=== PATIENT | male | born 1945 | race Caucasian/White ===

== ENCOUNTER 2019-01-19 13:52 | Emergency (ER) | payer MEDICARE, OTHER, SELFPAY ==
[2019-01-19 13:55] VITALS: BP 104/54; PULSE 83; RESP 19; TEMP 36.7; O2SAT 98; BMI 25.0
--- NOTE | 2019-01-19 14:20 | DI.RAD.S_ITS ---
PROCEDURE: XR HIP W PEL IF DONE RT 2V INDICATIONS: Severe pain to right hip TECHNIQUE: 2 views of the hip were acquired. COMPARISON: None. FINDINGS: Bones: No fractures or dislocations. No suspicious bony lesions. The visualized pelvic ring appears intact. Mild periarticular osteophyte formation at the bilateral hip joint margins. Soft tissues: No suspicious soft tissue calcifications or masses. IMPRESSION: Mild hip osteoarthritis bilaterally. Dictated by: Sheba Epps M.D. on 01/19/2019 at 14:48 Approved by: Sheba Epps M.D. on 01/19/2019 at 14:49
--- NOTE | 2019-01-19 16:07 | ED.LOWEXIN ---
HPI - Extremity Injury (Lower) <Flaquita Fitzgerald PA-C - Last Filed: 01/19/19 22:58> General Chief Complaint: Extremity Injury, Lower Stated Complaint: 'blown right leg out' Time Seen by Provider: 01/19/19 15:48 Source: patient Mode of arrival: ambulatory Limitations: no limitations History of Present Illness HPI Narrative: This 73-year-old gentleman comes to ED due to 3-4 day history of worsening right hip pain without any trauma. 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 He states that he was recovering well from the surgery, and was doing fine until Tuesday, when he suddenly began to have pain in the right hip with walking. He states he has been walking with a walker but that is quite painful. He denies any falls or trauma though thinks he could possibly be compensating for the left side. He denies any pain in the knee or elsewhere in the leg. He denies any fever. He denies any new rashes. He states that the leg is somewhat swollen but both of them have been a bit since surgery and he does not think this is acutely changed. He is not having any pain in his left leg or hip at this point. He states that he has been taking his postoperative pain medication regularly and has had the pain despite that. He states that he has a little bit of chronic exertional dyspnea that was going on well before surgery. 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 PSH: Cardiac stent TURP SH: former smoker followed by potential surgery) No history of previous cardiac or pulmonary problems Related Data Home Medications Medication Instructions Recorded Confirmed aspirin 81 mg PO DAILY 01/19/19 01/19/19 atorvastatin 20 mg PO BEDTIME 01/19/19 01/19/19 carvedilol 25 mg PO BID 01/19/19 01/19/19 clopidogrel 75 mg PO DAILY 01/19/19 01/19/19 finasteride 5 mg PO DAILY 01/19/19 01/19/19 fluticasone 1 spray INTRANASAL DAILY 01/19/19 01/19/19 gabapentin 300 mg PO TID 01/19/19 01/19/19 losartan 12.5 mg PO DAILY 01/19/19 01/19/19 multivitamin 1 tab PO DAILY 01/19/19 01/19/19 nitroglycerin 0.4 mg SUBLINGUAL PRN PRN 01/19/19 01/19/19 omeprazole 20 mg PO BID 01/19/19 01/19/19 oxycodone 5 - 10 mg PO Q4H PRN 01/19/19 01/19/19 Previous Rx's Medication Instructions Recorded oxycodone 5 mg PO Q4H #14 tab 01/19/19 Allergies Allergy/AdvReac Type Severity Reaction Status Date / Time Penicillins [PENICILLINS] Allergy Intermediate RASH AND Unverified 02/22/18 11:47 FEVER, WAS A CHILD WHEN REACTION HAPPENED lisinopril Allergy Verified 01/19/19 14:00 Review of Systems <Flaquita Fitzgerald PA-C - Last Filed: 01/19/19 22:58> Review of Systems ROS Unobtainable: All systems reviewed & are unremarkable except as noted in HPI and below PFSH <Flaquita Fitzgerald PA-C - Last Filed: 01/19/19 22:58> Social History Smoking Status: Former smoker Social History Smoking Status: Former smoker Exam <Flaquita Fitzgerald PA-C - Last Filed: 01/19/19 22:58> Narrative Exam Narrative: GENERAL APPEARANCE: Patient sitting comfortably, in no distress. LUNGS: Clear to auscultation bilaterally. HEART: Rate and rhythm regular without murmur, normal S1 and S2, no S3 or S4. MUSCULOSKELETAL: Right hip there is generalized tenderness around the joint most anterior laterally. He is tender with passive range of motion of the hip with knee bent, more internal than external rotation. He has positive Epi's test. Able to flex passively with the knee straight without tenderness. No tenderness about the knee joint or with knee flexion. No tenderness over the right ankle EXTREMITIES: No cyanosis, mild pitting edema bilaterally. Minimal right calf tenderness. Pedal pulses are intact DERMATOLOGIC: No exanthem Initial Vital Signs Initial Vital Signs: Vital Signs Temperature 98.1 F 01/19/19 13:55 Pulse Rate 83 01/19/19 13:55 Respiratory Rate 19 01/19/19 13:55 Blood Pressure 104/54 L 01/19/19 13:55 Pulse Oximetry 98 01/19/19 13:55 <Mariana Vadlez DO - Last Filed: 01/20/19 19:22> Initial Vital Signs Initial Vital Signs: Vital Signs Temperature 98.1 F 01/19/19 13:55 Pulse Rate 83 01/19/19 13:55 Respiratory Rate 19 01/19/19 13:55 Blood Pressure 104/54 L 01/19/19 13:55 Pulse Oximetry 98 01/19/19 13:55 Course <Flaquita Fitzgerald PA-C - Last Filed: 01/19/19 22:58> Additional Information: History and findings reviewed with Dr. Valdez given lack of trauma, recent surgery. She agrees possibly due to overuse, reasonable to d/c with increasing his pain medicine a bit (he has been on oxycodone or percocet for a long time for various issues including his tumors). He agrees to see PCP first of next week as he may need further w/u if not doing better. He agrees to return to ED in the interim if acutely worsening. Orders Ordered: Discontinued Medications Oxycodone/Acetaminophen (Percocet 5/325) 2 tab PO NOW ONE Stop: 01/19/19 16:29 Last Admin: 01/19/19 16:39 Dose: 2 tab Vital Signs - 8 hr 01/19/19 17:36 Temperature 98.5 F Pulse Rate 84 Respiratory Rate 16 Blood Pressure [Left Arm] 109/61 Pulse Oximetry 93 <Mariana Valdez DO - Last Filed: 01/20/19 19:22> Orders Ordered: Discontinued Medications Oxycodone/Acetaminophen (Percocet 5/325) 2 tab PO NOW ONE Stop: 01/19/19 16:29 Last Admin: 01/19/19 16:39 Dose: 2 tab Vital Signs - 8 hr 01/19/19 17:36 Temperature 98.5 F Pulse Rate 84 Respiratory Rate 16 Blood Pressure [Left Arm] 109/61 Pulse Oximetry 93 Discharge Plan Departure Patient Disposition: Home Clinical Impression: Acute pain of right hip Discharge Date/Time: 01/19/19 17:42 Interventions: ED Discharge Assessment Last Done: 01/19/19 17:42 Instructions: DI for Hip Pain Activity Restrictions/Additional Instructions: Please return as we talked about if you have acutely worsening symptoms over the weekend. You may be correct as far as possibly overuse/over working your right hip due to the surgery on your left hip. There was no acute finding on her x-ray today nor any evidence of blood clot in her leg. As we talked about you may need further workup such as blood tests an MRI if your pain is not getting better, as there could be other problems such as bone infection causing your pain although that is not very likely based on your history and exam today. Please call your PCP 1st thing on Tuesday and let them know you were seen here and we would like you to be seen on Tuesday for follow-up. In the interim, I have prescribed a little bit of plain oxycodone for you to add to your Percocet (you can take a tablet of this with your regular Percocet dosing to help with her pain since you have not had side effects from it in the past) Prescriptions: New oxycodone 5 mg tablet 5 mg PO Q4H Qty: 14 RF: 0 No Action carvedilol 25 mg tablet 25 mg PO BID RF: 0 atorvastatin 20 mg tablet 20 mg PO BEDTIME RF: 0 clopidogrel 75 mg tablet 75 mg PO DAILY RF: 0 aspirin 81 mg Tablet,Delayed Release (Dr/Ec) 81 mg PO DAILY RF: 0 losartan 25 mg tablet 12.5 mg PO DAILY RF: 0 nitroglycerin 0.4 mg tablet, sublingual 0.4 mg Sublingual PRN PRN (Reason: Chest Pain) RF: 0 gabapentin 300 mg capsule 300 mg PO TID RF: 0 omeprazole 20 mg Capsule,Delayed Release(Dr/Ec) 20 mg PO BID RF: 0 fluticasone 50 mcg/actuation spray,suspension 1 spray Intranasal DAILY RF: 0 finasteride 5 mg tablet 5 mg PO DAILY RF: 0 oxycodone 5 mg tablet 5 - 10 mg PO Q4H PRN (Reason: PAIN) RF: 0 multivitamin Tablet 1 tab PO DAILY RF: 0 Referrals: Anders Camara MD [Primary Care Provider] - <Mariana Valdez DO - Last Filed: 01/20/19 19:22> Cosign ED Attending Coskathyature Attestation: I was immediately available in the department for consultation. This documentation has been reviewed and I agree with assessment and plan. Supervised by Mariana Valdez DO
--- NOTE | 2019-01-19 16:29 | DI.US.S_ITS ---
PROCEDURE: US PERIPH VENOUS LOW EXTREM RT INDICATIONS: pain, swelling, recent surgery TECHNIQUE: Real-time imaging, as well as color and pulse Doppler interrogation, were performed of the lower extremity deep veins from the inguinal ligament to the popliteal fossa. COMPARISON: None. FINDINGS: The deep veins are normally compressible, and free of intraluminal thrombus. Color and pulse Doppler demonstrate normal phasic intraluminal flow. There is normal augmentation response to distal compression maneuver. IMPRESSION: No DVT found. Dictated by: Manuelito Salcido M.D. on 01/19/2019 at 17:06 Approved by: Manuelito Salcido M.D. on 01/19/2019 at 17:06
[2019-01-19] MEDS: OXYCODONE/ACETAMINOPHEN 5/325 TABLET 2 TAB PO (16:39)
--- NOTE | 2019-01-19 17:06 | PC.NURSE ---
rt groin/hip pain began several days ago, worsening, 2 weeks postop lt hip surg, bilat lower ext edema, lt > rt, rt pedal pulses palpable, cap refill <2sec
[2019-01-19 17:36] VITALS: BP 109/61; PULSE 84; RESP 16; TEMP 36.9; O2SAT 93
== END 2019-01-19 17:42 | disposition home or self-care (01) ==
PROVIDERS: Emergency Provider Internal Medicine; Family Provider Internal Medicine; PCP Internal Medicine
DX: M25.551 Pain in right hip (principal)
CPT/HCPCS: 73502; 93971; 99282; 99283

== ENCOUNTER 2019-06-07 19:25 | Emergency (ER) | payer MEDICARE, OTHER, SELFPAY ==
[2019-06-07 19:36] VITALS: BP 139/86; PULSE 72; RESP 18; TEMP 36.3; O2SAT 95
--- NOTE | 2019-06-07 19:48 | ED.SKABFB ---
HPI - Skin/Abscess/Foreign Bdy <EMMANUELLE Amado - Last Filed: 06/07/19 20:03> General Chief complaint: Skin/Abscess/Foreign Body Stated complaint: thinks burn is infected Time Seen by Provider: 06/07/19 19:31 Source: patient Mode of arrival: ambulatory Limitations: no limitations History of Present Illness HPI narrative: The patient is a 73-year-old male current everyday smoker with history of cancer tumor removal from his left groin who presents with a chief complaint of suspecting that his radiation burn is infected. Denies any nausea vomiting diarrhea. He denies any fevers. He states that he noticed that irritation is inguinal area yesterday. He states his and increasingly painful throughout the day. He does note some drainage noted yesterday. Related Data Home Medications Medication Instructions Recorded Confirmed aspirin 81 mg PO DAILY 01/19/19 01/19/19 atorvastatin 20 mg PO BEDTIME 01/19/19 01/19/19 carvedilol 25 mg PO BID 01/19/19 01/19/19 clopidogrel 75 mg PO DAILY 01/19/19 01/19/19 finasteride 5 mg PO DAILY 01/19/19 01/19/19 fluticasone propionate 1 spray INTRANASAL DAILY 01/19/19 01/19/19 gabapentin 300 mg PO TID 01/19/19 01/19/19 losartan 12.5 mg PO DAILY 01/19/19 01/19/19 multivitamin 1 tab PO DAILY 01/19/19 01/19/19 nitroglycerin 0.4 mg SUBLINGUAL PRN PRN 01/19/19 01/19/19 omeprazole 20 mg PO BID 01/19/19 01/19/19 oxycodone 5 - 10 mg PO Q4H PRN 01/19/19 01/19/19 Previous Rx's Medication Instructions Recorded oxycodone 5 mg PO Q4H #14 tab 01/19/19 Allergies Allergy/AdvReac Type Severity Reaction Status Date / Time Penicillins [PENICILLINS] Allergy Intermediate RASH AND Unverified 02/22/18 11:47 FEVER, WAS A CHILD WHEN REACTION HAPPENED lisinopril Allergy Verified 01/19/19 14:00 Review of Systems <EMMANUELLE Amado - Last Filed: 06/07/19 20:03> Review of Systems GENERAL: Denies chills, fatigue, malaise, fever, sweats. HEENT: Denies sinus pain, ear pain, sore throat, difficulty swallowing, dizziness. RESPIRATORY: Denies dyspnea, cough, wheezing, hemoptysis, sputum. CARDIOVASCULAR: Denies chest pain, palpitations, orthopnea, edema, GASTROINTESTINAL: Denies nausea, vomiting, abdominal pain, diarrhea, constipation, melena. : Denies dysuria, frequency, incontinence, hematuria, urinary retention. MUSCULOSKELETAL: denies weakness, joint pain, or bony pain SKIN: See HPI NEUROLOGIC: Denies weakness, headache, numbness, change in speech, confusion, seizures, incoordination. PSYCHIATRIC: No concerning psychosocial issues. 12 point review of systems is negative except for those stated above PFSH <EMMANUELLE Amado - Last Filed: 06/07/19 20:03> Medical History (Updated 06/07/19 @ 20:02 by EMMANUELLE Amado) Hypertension (Acute) Social History Smoking Status: Former smoker Social History Smoking Status: Former smoker Exam <EMMANUELLE Amado - Last Filed: 06/07/19 20:03> Narrative Exam Narrative: GENERAL: Elderly chronically ill-appearing gentleman sitting on chair in no acute distress HEAD: Atraumatic. Normocephalic. No temporal or scalp tenderness. EYES: Pupils equal round and reactive. Extraocular motions intact. No scleral icterus. No injection or drainage. ENT: Nose without bleeding, purulent drainage or septal hematoma. Throat without erythema, tonsillar hypertrophy or exudate. Uvula midline. Airway patent. NECK: Trachea midline. No JVD or lymphadenopathy. Supple, nontender, no meningeal signs. CARDIOVASCULAR: Regular rate and rhythm without murmurs, gallops, or rubs. RESPIRATORY: Coarse breath sounds auscultation. Breath sounds equal bilaterally. No wheezes, rales, or rhonchi. No cough. No increased respiratory effort. No accessory muscle use. GASTROINTESTINAL: Abdomen soft, non-tender, nondistended. No hepato-splenomegaly, or palpable masses. No guarding. EXTREMITIES: No clubbing, cyanosis, or edema. No joint tenderness, effusion, or edema noted. BACK: Nontender without deformity or crepitance. No flank tenderness. NEURO: AOx3. SKIN: 4 x 6 area of peeling skin noted left inguinal area. No drainage. No surrounding erythema. Pain to palpation. Not full thickness. Initial Vital Signs Initial Vital Signs: Vital Signs Temperature 97.4 F L 06/07/19 19:36 Pulse Rate 72 06/07/19 19:36 Respiratory Rate 18 06/07/19 19:36 Blood Pressure 139/86 06/07/19 19:36 Pulse Oximetry 95 06/07/19 19:36 <Markus Stevens DO - Last Filed: 06/08/19 03:52> Initial Vital Signs Initial Vital Signs: Vital Signs Temperature 97.4 F L 06/07/19 19:36 Pulse Rate 72 06/07/19 19:36 Respiratory Rate 18 06/07/19 19:36 Blood Pressure 139/86 06/07/19 19:36 Pulse Oximetry 95 06/07/19 19:36 Course <EMMANUELLE Amado - Last Filed: 06/07/19 20:03> Vital Signs - 8 hr 06/07/19 19:36 Temperature 97.4 F L Pulse Rate 72 Respiratory Rate 18 Blood Pressure 139/86 Pulse Oximetry 95 <Markus Stevens DO - Last Filed: 06/08/19 03:52> Vital Signs - 8 hr 06/07/19 19:36 Temperature 97.4 F L Pulse Rate 72 Respiratory Rate 18 Blood Pressure 139/86 Pulse Oximetry 95 MDM - Skin/Abscess/Foreign Bdy <EMMANUELLE Amado - Last Filed: 06/07/19 20:03> Lab Data Urine Dip Bedside Urine Glucose Negative Bedside Urine Bilirubin - Negative Bedside Urine Ketone - Negative Urine Specific [place] 1.015 Bedside Urine Occult Blood - Negative Bedside Urine pH 6.0 Bedside Urine Protein - Negative Bedside Urine Urobilinogen - Negative Bedside Urine Nitrite - Negative Bedside Urine Leukocytes - Negative Esterase MDM Narrative Medical decision making narrative: The patient is a 73-year-old male who presents with chief complaint of the radiation burn. His exam reveals likely radiation dermatitis. I discussed at length using steroids, bacitracin, as well as the importance of follow-up with his radiation provider, which she plans on doing tomorrow. Discussed at length monitoring for signs of systemic infection including fever, vomiting, diarrhea cetera. Patient states understanding and has no questions or concerns. States understanding of follow-up care as well as return precautions. <Markus Stevens DO - Last Filed: 06/08/19 03:52> Lab Data Urine Dip Bedside Urine Glucose Negative Bedside Urine Bilirubin - Negative Bedside Urine Ketone - Negative Urine Specific [place] 1.015 Bedside Urine Occult Blood - Negative Bedside Urine pH 6.0 Bedside Urine Protein - Negative Bedside Urine Urobilinogen - Negative Bedside Urine Nitrite - Negative Bedside Urine Leukocytes - Negative Esterase Discharge Plan Departure Patient Disposition: Home Clinical Impression: Acute radiation dermatitis Discharge Date/Time: 06/07/19 20:07 Interventions: ED Discharge Assessment Last Done: 06/07/19 20:06 Instructions: Coping With Radiation Recall Dermatitis Activity Restrictions/Additional Instructions: Please monitor for signs of systemic infection such as fever, vomiting and diarrhea. Please follow-up with your primary care provider or her hematology, oncology provider soon as possible. In the meantime I suggest NSAIDs, such as ibuprofen if able, as well as topical steroids such as hydrocortisone and bacitracin. Please come back to emergency department for any acute concerns such as high fever and inability keep down fluids Prescriptions: No Action carvedilol 25 mg tablet 25 mg PO BID RF: 0 atorvastatin 20 mg tablet 20 mg PO BEDTIME RF: 0 clopidogrel 75 mg tablet 75 mg PO DAILY RF: 0 aspirin 81 mg Tablet,Delayed Release (Dr/Ec) 81 mg PO DAILY RF: 0 losartan 25 mg tablet 12.5 mg PO DAILY RF: 0 nitroglycerin 0.4 mg tablet, sublingual 0.4 mg Sublingual PRN PRN (Reason: Chest Pain) RF: 0 gabapentin 300 mg capsule 300 mg PO TID RF: 0 omeprazole 20 mg Capsule,Delayed Release(Dr/Ec) 20 mg PO BID RF: 0 fluticasone propionate 50 mcg/actuation spray,suspension 1 spray Intranasal DAILY RF: 0 finasteride 5 mg tablet 5 mg PO DAILY RF: 0 oxycodone 5 mg tablet 5 - 10 mg PO Q4H PRN (Reason: PAIN) RF: 0 multivitamin Tablet 1 tab PO DAILY RF: 0 oxycodone 5 mg tablet 5 mg PO Q4H Qty: 14 RF: 0 Referrals: Anders Camara MD [Primary Care Provider] - <Markus Stevens DO - Last Filed: 06/08/19 03:52> Cosign ED Attending Oluature Attestation: I was immediately available in the department for consultation. Documentation has been reviewed. I agree with assessment and plan.
== END 2019-06-07 20:07 | disposition home or self-care (01) ==
PROVIDERS: Emergency Provider Nurse Practitioner Family; Family Provider Internal Medicine; PCP Internal Medicine
DX: L58.0 Acute radiodermatitis (principal)
CPT/HCPCS: 81003; 99282

== ENCOUNTER → 2019-07-27 14:12 | Outpatient (CLI) | payer MEDICARE, OTHER, SELFPAY ==
--- NOTE | 2019-07-27 | DI.RAD.S_ITS ---
PROCEDURE: XR KNEE RT 1TO2V INDICATIONS: RT KNEE PAIN TECHNIQUE: 2 views of the knee were acquired. COMPARISON: None. FINDINGS: Bones: No fractures or dislocations. Mild degenerative change. No suspicious bony lesions. Soft tissues: A joint effusion is present. No suspicious soft tissue calcifications. Vascular calcifications. IMPRESSION: No fracture or dislocation. Joint effusion is present. Dictated by: Indra Khan M.D. on 07/27/2019 at 15:41 Approved by: Indra Khan M.D. on 07/27/2019 at 15:42
== END ==
PROVIDERS: Family Provider Internal Medicine; PCP Internal Medicine; Visit Provider Physician Assistant Medical
DX: M25.561 Pain in right knee (principal); M25.461 Effusion, right knee
CPT/HCPCS: 73560

== ENCOUNTER → 2020-04-22 12:53 | Outpatient (CLI) | payer MEDICARE, OTHER, SELFPAY ==
--- NOTE | 2020-04-22 | DI.MRI.S_ITS ---
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 After the administration of contrast, axial/sagittal/coronal T1 spin echo with fat saturation through the pelvis. COMPARISON: [facility], MR, MR PELVIS WITH/WITHOUT CONTRAST, 04/16/2019, 10:13. [facility], MR, PELVIS W&WO CONTRAST, 04/21/2015, 7:30. FINDINGS: Image quality: Excellent. Bones: Again noted is prior resection of patient's known medial left upper thigh/inguinal/anterior pelvic soft tissue mass with erosive changes/destruction involving anterior and medial left acetabulum extending to involve left superior and inferior pubic rami not significantly changed in appearance from previous study. Mild marrow edema involving medial portion of right inferior pubic ramus near symphysis pubis is also seen. No definite abnormal intraosseous enhancement is noted. No new area of abnormal marrow signal. No acute fracture or dislocation. Osteoarthritic changes are noted throughout bony pelvis. No evidence of avascular necrosis of femoral head. Soft tissues: T2 hyperintense signal involving left iliopsoas muscle, pectineus muscle, at adductor muscles and obturator externus muscle and significant left pelvic floor muscle atrophy compared to right side. No discrete soft tissue mass is seen. Nonspecific mild contrast enhancement at the surgical bed is seen. No other area of abnormal enhancement. IMPRESSION: 1. Extensive post surgical changes in left anterior pelvis, left inguinal region and anterior medial left upper thigh as above, not significant changed from prior study. Nonspecific enhancement is noted at the surgical bed, no definite recurrence or discrete enhancing soft tissue mass is identified. 2. Erosive changes involving left acetabulum as well as left superior and inferior pubic rami and nonspecific marrow edema involving medial portion of right inferior pubic ramus not significant changed from prior study and most likely represent post surgical changes. No definite new destructive osseous lesion is seen. 3. Atrophy of left pelvic floor muscles compared to the right side, not significantly changed from prior study. 4. No peritoneal free fluid is seen. No gross inguinal lymphadenopathy. Dictated by: Fredrick Ochoa M.D. on 04/22/2020 at 17:37 Approved by: Fredrick Ochoa M.D. on 04/22/2020 at 17:51
--- NOTE | 2020-04-22 | DI.MRI.S_ITS ---
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 After the administration of contrast, axial/sagittal/coronal T1 spin echo with fat saturation through the left thigh. COMPARISON: None. FINDINGS: Image quality: Excellent. Bones: Postsurgical changes and chronic erosive changes are noted involving the left anterior and medial acetabulum as well as visualized portion of left superior and inferior pubic rami. Left hip joint osteophytic changes are seen. No marrow signal abnormality is noted in left femur. No suspicious intraosseous lesion or abnormal enhancement. Soft tissues: Post surgical changes are noted involving the left pelvic floor muscles and anterior medial left upper thigh muscles with edema and asymmetric muscle atrophy. No definite discrete intramuscular or soft tissue mass is seen. No discrete drainable fluid collection. Nonspecific contrast enhancement within surgical bed is seen. No other area of abnormal enhancement. Rest of left thigh muscles and tendons are intact. IMPRESSION: 1. Stable post surgical changes involving left anterior medial upper thigh and left pelvic floor with nonspecific contrast enhancement at the surgical bed most likely represent postsurgical scarring. No definite discrete soft tissue mass or fluid collection is identified. 2. No evidence of recurrent or metastatic disease is seen in left femur. Stable deformity of left acetabulum and left pubic rami. Dictated by: Fredrick Ochoa M.D. on 04/22/2020 at 17:51 Approved by: Fredrick Ochoa M.D. on 04/22/2020 at 17:55
--- NOTE | 2020-04-22 | DI.RAD.S_ITS ---
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 COMPARISON: [facility], CR, XR HIP W PEL IF DONE RT 2V, 01/19/2019, 14:27. FINDINGS: Bones: No fractures or dislocations. Pelvic ring appears intact. No suspicious bony lesions. Lumbar spondylosis and facet arthropathy. Mild-moderate bilateral hip joint degeneration Soft tissues: The visualized bowel gas pattern is normal. No suspicious soft tissue calcifications. Scattered vascular calcifications. Surgical clips. IMPRESSION: Mild-moderate bilateral hip joint degeneration, grossly unchanged. Dictated by: Eugenio Mcnulty M.D. on 04/22/2020 at 15:59 Approved by: Eugenio Mcnulty M.D. on 04/22/2020 at 16:01
--- NOTE | 2020-04-22 | DI.RAD.S_ITS ---
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 COMPARISON: [facility], CT, PE STUDY (CTA CHEST), 07/05/2015, 12:45. [facility], CR, CHEST 2 VIEW, 07/05/2015, 11:21. FINDINGS: Surgical changes and devices: None. Lungs and pleura: Lungs are clear. No pleural effusions or pneumothorax. Mediastinum: Mediastinal contours are normal. Heart size is normal. Redemonstrated hiatal hernia Bones and chest wall: No suspicious bony abnormalities. Chronic right clavicle fracture. Soft tissues appear unremarkable. IMPRESSION: Hiatal hernia as before No acute disease Dictated by: Eugenio Mcnulty M.D. on 04/22/2020 at 15:57 Approved by: Eugenio Mcnulty M.D. on 04/22/2020 at 15:58
== END ==
PROVIDERS: Family Provider Internal Medicine; PCP Internal Medicine; Visit Provider Orthopaedic Surgery
DX: C49.5 Malignant neoplasm of connective and soft tissue of pelvis (principal); M16.0 Bilateral primary osteoarthritis of hip; M47.816 Spondylosis without myelopathy or radiculopathy, lumbar region; K44.9 Diaphragmatic hernia without obstruction or gangrene
CPT/HCPCS: 71046; 72197; 73521; 73720

== ENCOUNTER → 2021-05-14 13:33 | Outpatient (CLI) | payer MEDICARE, OTHER, SELFPAY ==
--- NOTE | 2021-05-14 | DI.MRI.S_ITS ---
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 TECHNIQUE: Coronal HASTE, sagittal T2 FSE, axial T1 FSE, axial and coronal nonbreath-hold T2 FSE. Axial dynamic VIBE during administration of contrast. Post-contrast axial, sagittal and coronal VIBE/2-D FLASH with fat saturation from the iliac crests to the symphysis. Diffusion weighted imaging and ADC or also performed. COMPARISON: [facility], MR, MR PELVIS WITH/WITHOUT CONTRAST, 11/24/2018, 8:50. [facility], MR, MR PELVIS WITH/WITHOUT CONTRAST, 04/16/2019, 10:13. [facility], MR, MR FEMUR LT WO/W CON, 04/22/2020, 13:46. [facility], MR, MR PELVIS WO/W CON, 04/22/2020, 13:25. FINDINGS: Image quality: Evaluation is limited by motion artifact and absence of fat saturation on post-contrast axial images. Bowel and peritoneum: No pathologic free pelvic fluid. Visualized colon and small bowel loops are normal in caliber. There is colonic diverticulosis without acute diverticulitis. No intraperitoneal free fluid. Genitourinary system: Bladder wall is normal in thickness given incomplete distention. There is mild enlargement of the prostate. Distal ureters are non distended. Nodes and vessels: No pathologic pelvic or inguinal adenopathy by size criteria. Iliac vessels are normal in caliber. Soft tissues: Extensive postsurgical changes are redemonstrated in the left hemipelvis and proximal left thigh consistent with prior mass resection. There is residual enhancing soft tissue along the left pelvic sidewall with associated erosive changes extending into the medial left acetabulum anteriorly as well as the left superior pubic ramus. The overall extent of enhancing soft tissues is similar in size to the prior study and also similar to the 04/16/2019 study given differences in technique. There is also edema and volume loss within the left adductor compartment consistent with denervation changes. No definite new enhancing mass in the surgical bed. Bones: Marrow is normal in overall signal. As noted above, there are erosive changes within the left superior pubic ramus extending to the pubis medially and involving the medial wall of the left acetabulum with associated enhancement. There is decreased edema within the right superior pubic ramus and pubic bone compared to the 2019 study consistent with posttreatment changes. No definite new suspicious intraosseous mass lesion. IMPRESSION: 1. Extensive postsurgical changes redemonstrated within the left hemipelvis and proximal left thigh. 2. Lobulated enhancing soft tissue along the left pelvic sidewall with associated enhancing erosive changes in the adjacent left superior pubic ramus and medial left acetabulum are suspicious for residual disease. However, this appears similar in size and extent compared to the prior studies. The differential includes postsurgical scarring. Recommend continued attention on follow-up. Dictated by: Dennis Cameron M.D. on 05/14/2021 at 17:05 Approved by: Dennis Cameron M.D. on 05/14/2021 at 17:23
--- NOTE | 2021-05-14 | DI.RAD.S_ITS ---
PROCEDURE: XR HIP W PEL IF DONE LT 2V INDICATIONS: Benign neoplasm of connective and other soft tissu TECHNIQUE: AP pelvis with lateral view(s) of the left hip(s). COMPARISON: [facility], MR, MR FEMUR LT WO/W CON, 04/22/2020, 13:46. [facility], CR, XR HIP W PEL IF DONE BILAT 2V, 04/22/2020, 14:35. [facility], CR, XR HIP W PEL IF DONE RT 2V, 01/19/2019, 14:27. FINDINGS: Bones: No fractures or dislocations. Pelvic ring appears intact. No suspicious bony lesions. Soft tissues: The visualized bowel gas pattern is normal. No suspicious soft tissue calcifications. Scattered surgical clips at and adjacent to the left hip area. IMPRESSION: Postsurgical changes but no evidence for osseous involvement by neoplasm. Please also refer to contrast-enhanced MR scanning of the pelvis and hip area, both from the past and to be performed today. Dictated by: Manuelito Salcido M.D. on 05/14/2021 at 15:04 Approved by: Manuelito Salcido M.D. on 05/14/2021 at 15:06
--- NOTE | 2021-05-14 | DI.MRI.S_ITS ---
PROCEDURE: MR FEMUR LT WO/W CON INDICATIONS: Benign neoplasm of connective and other soft tissu TECHNIQUE: Noncontrast coronal T1 spin echo and STIR, sagittal T1 spin echo with fat saturation and STIR, axial T1 spin echo and T2 fast spin echo with fat saturation. After the administration of contrast, axial/sagittal/coronal T1 spin echo with fat saturation through the left femur. COMPARISON: [facility], MR, MR PELVIS WITH/WITHOUT CONTRAST, 04/16/2019, 10:13. [facility], MR, MR FEMUR LT WO/W CON, 04/22/2020, 13:46. FINDINGS: Image quality: Motion degraded examination. Bones: Marrow signal changes present within the anterior column of the right acetabulum are again noted with adjacent abnormal soft tissue signal although grossly unchanged. This may reflect postoperative scarring and granulation tissue given the long-term stability and no interval change since 04/22/20. Remainder of the marrow signal intensity within normal limits. There is diffuse atrophy of the right hip abductor compartment musculature as before. Normal appearance of the vessels. No pathologically enlarged lymphadenopathy identified. Subcutaneous soft tissues grossly unremarkable except for residual scarring in the medial left upper thigh. The intrapelvic contents are grossly unremarkable where visualized plate areas IMPRESSION: Erosive findings involving the anterior column of the right acetabulum with adjacent soft tissue signal change. Overall, no interval progression since 04/22/20 and compared to more remote prior studies. This suggests the possibility of treated disease and possible enhancing granulation tissue. Overall, no interval change to suggest active tumor. Diffuse muscle atrophy as before. No lymphadenopathy seen. Dictated by: Eugenio Mcnulty M.D. on 05/14/2021 at 16:51 Approved by: Eugenio Mcnulty M.D. on 05/14/2021 at 17:01
== END ==
PROVIDERS: Family Provider Internal Medicine; PCP Internal Medicine; Referring Provider Physician Assistant Medical; Visit Provider Physician Assistant Medical
DX: D21.22 Benign neoplasm of connective and other soft tissue of left lower limb, including hip (principal); M12.20 Villonodular synovitis (pigmented), unspecified site; M62.58 Muscle wasting and atrophy, not elsewhere classified, other site
CPT/HCPCS: 72197; 73502; 73720; A9579

== ENCOUNTER → 2022-03-08 10:18 | Outpatient (CLI) | payer MEDICARE, OTHER, SELFPAY ==
--- NOTE | 2022-03-08 | DI.RAD.S_ITS ---
PROCEDURE: XR CHEST 2V INDICATIONS: worsening shortness of breath, cough TECHNIQUE: 2 views of the chest were acquired. COMPARISON: [facility], CR, XR CHEST 2V, 04/22/2020, 14:35. FINDINGS: Surgical changes and devices: None. Lungs and pleura: Mildly increased bronchovascular markings in bilateral hilar region are seen with mild bronchial wall thickening. No definite focal infiltrate. No pleural effusions or pneumothorax. Mediastinum: Mediastinal contours are normal. Heart size is normal. Bones and chest wall: No suspicious bony abnormalities. Soft tissues appear unremarkable. IMPRESSION: Finding is suggestive of mild reactive airway disease such as bronchitis or asthma. No focal infiltrate, pleural effusion or pneumothorax. Dictated by: Fredrick Ochoa M.D. on 03/08/2022 at 13:51 Approved by: Fredrick Ochoa M.D. on 03/08/2022 at 13:58
== END ==
PROVIDERS: Family Provider Internal Medicine; PCP Internal Medicine; Referring Provider Physician Assistant; Visit Provider Physician Assistant
DX: R05.9 Cough, unspecified; R06.02 Shortness of breath
CPT/HCPCS: 71046

== ENCOUNTER 2022-04-17 14:50 | Emergency (ER) | payer MEDICARE, OTHER, SELFPAY ==
[2022-04-17 14:55] VITALS: BP 153/70; PULSE 81; RESP 18; TEMP 37.4; O2SAT 89; BMI 27.7
--- NOTE | 2022-04-17 15:03 | DI.RAD.S_ITS ---
PROCEDURE: XR CHEST 2V INDICATIONS: shortness of breath TECHNIQUE: 2 views of the chest were acquired. COMPARISON: [facility], , XR CHEST 2V, 04/22/2020, 14:35. [facility], , XR CHEST 2V, 03/08/2022, 10:39. FINDINGS: Surgical changes and devices: None. Lungs and pleura: Lungs are clear. No pleural effusions or pneumothorax. Mediastinum: Hiatal hernia less prominent on today's examination. Mediastinal contours are normal. Heart size is normal. Bones and chest wall: No suspicious bony abnormalities. Soft tissues appear unremarkable. IMPRESSION: No evidence of an acute cardiopulmonary abnormality. Hiatal hernia. Dictated by: Isrrael Ponce D.O. on 04/17/2022 at 14:45 Approved by: Isrrael Ponce D.O. on 04/17/2022 at 14:46
[2022-04-17 15:23] VITALS: O2SAT 96
[2022-04-17] MEDS: ALBUTEROL/IPRATROPIUM 3 ML AMPUL INH (15:34)
[2022-04-17 15:57] LABS: Add Manual Diff / Slide Review NO; Basophils Absolute Auto 100 /uL (0-100); Basophils Percent Auto 0.8 % (0-2); Eosinophils Absolute Auto 100 /uL (0-450); Eosinophils Percent Auto 0.6 % (2-4); Hematocrit 39.9 % (41-53); Lymphocytes Absolute Auto 800 /uL (1100-4500); Lymphocytes Percent Auto 9.5 % (25-40); Mean Corpuscular HGB Conc 35.1 % (30-36); Mean Corpuscular Hemoglobin 32.8 PG (26-34); Mean Corpuscular Volume 93.4 fL (80-100); Monocytes Absolute Auto 1100 /uL (0-900); Neutrophils Absolute Auto 6400 /uL (1500-7000); Neutrophils Percent Auto 76.1 % (50-75); Platelet Count 294 X10^3/uL (150-400); Red Blood Cell Count 4.27 X10^6/uL (4.5-5.9); Red Cell Distribution Width 13.8 % (11.6-14.8); White Blood Cell Count 8.4 X10^3/uL (4.5-11.0)
[2022-04-17 16:01] LABS: Alanine Aminotransferase 30 IU/L (<50); Albumin 4.5 g/dL (3.5-5.0); Albumin Globulin Ratio 1.4 (1.0-2.8); Alkaline Phosphatase 124 U/L (38-126); Aspartate Aminotransferase 35 IU/L (17-59); BUN Creatinine Ratio 14.7 (6-22); Bilirubin Total 0.4 mg/dL (0.2-1.3); Blood Urea Nitrogen 10 mg/dL (9-20); Carbon Dioxide 27 mmol/L (22-32); Chloride 101 mmol/L (98-107); Estimated Glomerular Filt Rate > 60 mL/min (>60); Globulin 3.3 g/dL (1.7-4.1); Glucose 108 mg/dL (80-110); HEMOLYSIS < 15 (0-50); Lactate (Lactic Acid) 1.1 mmol/L (0.7-2.1); Potassium 4.5 mmol/L (3.4-5.1); Sodium 136 mmol/L (137-145); Total Protein 7.8 g/dL (6.3-8.2)
[2022-04-17 16:04] LABS: Adenovirus Not Detected (Not Detect); B. parapertussis Not Detected (Not Detecte); Bordetella pertussis Not Detected (Not Detecte); Chlamydophila pneumoniae Not Detected (Not Detect); Coronavirus 229E Not Detected (Not Detect); Coronavirus HKU1 Not Detected (Not Detect); Coronavirus NL 63 Not Detected (Not Detect); Coronavirus OC43 Not Detected (Not Detect); Human Metapneumovirus Detected (Not Detect); Human Rhinovirus/Enterovirus Not Detected (Not Detect); Influenza A Not Detected (Not Detect); Influenza B Not Detected (Not Detect); Mycoplasma pneumoniae Not Detected (Not Detect); Parainfluenza Virus 1 Not Detected (Not Detect); Parainfluenza Virus 2 Not Detected (Not Detect); Parainfluenza Virus 3 Not Detected (Not Detect); Parainfluenza Virus 4 Not Detected (Not Detect); Respiratory Syncytial Virus Not Detected (Not Detect); SARS- CoV-2 Not Detected (Not Detecte)
[2022-04-17 16:21] VITALS: PULSE 82; RESP 20; O2SAT 94
--- NOTE | 2022-04-17 16:21 | PC.NURSE ---
Pt appears much better after breathing tx. States he is breathing much easier
--- NOTE | 2022-04-17 16:58 | ED.SOB ---
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 Patient denies ever having a COPD exacerbation, states that his 6 year old daughter came with a fever and upper respiratory infection three days ago. Patient is unvaccinated for COVID, denies having a fever, chest pain, nausea vomiting or diarrhea. He endorses shortness of breath and chest tightness, he use his inhalers at home, states that he is on albuterol and breztri inhalers for his COPD and just started the Breztri this week, it is a Laba and Lama with a corticosteroid. Related Data Home Medications Medication Instructions Recorded Confirmed aspirin 81 mg tablet,delayed 81 mg PO DAILY 01/19/19 01/19/19 release atorvastatin 20 mg tablet 20 mg PO BEDTIME 01/19/19 01/19/19 carvedilol 25 mg tablet 25 mg PO BID 01/19/19 01/19/19 clopidogrel 75 mg tablet 75 mg PO DAILY 01/19/19 01/19/19 finasteride 5 mg tablet 5 mg PO DAILY 01/19/19 01/19/19 fluticasone propionate 50 1 spray INTRANASAL DAILY 01/19/19 01/19/19 mcg/actuation nasal spray,suspension gabapentin 300 mg capsule 300 mg PO TID 01/19/19 01/19/19 losartan 25 mg tablet 12.5 mg PO DAILY 01/19/19 01/19/19 multivitamin 1 tab PO DAILY 01/19/19 01/19/19 nitroglycerin 0.4 mg sublingual 0.4 mg SUBLINGUAL PRN PRN 01/19/19 01/19/19 tablet omeprazole 20 mg capsule,delayed 20 mg PO BID 01/19/19 01/19/19 release oxycodone 5 mg tablet 5 - 10 mg PO Q4H PRN 01/19/19 01/19/19 Previous Rx's Medication Instructions Recorded oxycodone 5 mg tablet 5 mg PO Q4H #14 tab 01/19/19 Allergies Allergy/AdvReac Type Severity Reaction Status Date / Time Penicillins [PENICILLINS] Allergy Intermediate RASH AND Unverified 02/22/18 11:47 FEVER, WAS A CHILD WHEN REACTION HAPPENED lisinopril Allergy Verified 01/19/19 14:00 Review of Systems <IVÁN Maurer - Last Filed: 04/17/22 17:09> Review of Systems Narrative: General: denies fever, chills Head/Neck: denies headache, neck pain Eyes: denies visual changes, eye pain Cardio: denies chest pain, palpitations Respiratory: Endorses shortness of breath with a productive cough, runny nose, sore throat GI: denies abdominal pain, nausea, vomiting, or diarrhea : denies dysuria, hematuria or flank pain MSK: denies new joint pain, muscle weakness or swelling Skin: denies rash, itching or wound Neuro: denies numbness, tingling, dizziness Patient History <IVÁN Maurer - Last Filed: 04/17/22 17:09> Medical History Hypertension Social History Smoking Status: Former smoker Smoking Status: Former smoker alcohol intake frequency: a few times a week Substance Use Type: does not use Exam <IVÁN Maurer Last Filed: 04/17/22 17:09> Narrative Exam Narrative: Independently reviewed vitals signs and nursing notes. General: Awake, alert, nontoxic, no cardiorespiratory distress Head/Neck: Atraumatic, neck supple Eyes: EOMI, conjunctiva normal Nose: nares patent, no rhinorrhea Mouth/Throat: moist mucus membranes, posterior pharynx without erythema or lesion Cardio: Regular rate and rhythm, no peripheral edema Respiratory: respirations unlabored with extra Lorena wheezes throughout all burgos, without stridor rales, hypoxia prior to DuoNeb with O2 sats of 89% on room air, after DuoNeb, patient satting in mid 90s, with better aeration and air flow, mild squeak heard intermittently on exhalation. Patient is without crackles or rales, retractions or tachypnea GI: Abdomen soft, nontender to palpation x4 quadrants, no guarding or rebound tenderness MSK: Moves all extremities, neurovascularly intact, range of motion without deficit Skin: Normal capillary refill, no rash Neuro: Normal speech and cognition, normal gait Initial Vital Signs Initial Vital Signs: Vital Signs Temperature 99.4 F 04/17/22 14:55 Pulse Rate 81 04/17/22 14:55 Respiratory Rate 18 04/17/22 14:55 Blood Pressure 153/70 H 04/17/22 14:55 Pulse Oximetry 89 L 04/17/22 14:55 <David Miguel DO - Last Filed: 04/17/22 17:57> Initial Vital Signs Initial Vital Signs: Vital Signs Temperature 99.4 F 04/17/22 14:55 Pulse Rate 81 04/17/22 14:55 Respiratory Rate 18 04/17/22 14:55 Blood Pressure 153/70 H 04/17/22 14:55 Pulse Oximetry 89 L 04/17/22 14:55 Course <VERONICA MaurerP - Last Filed: 04/17/22 17:09> Orders Ordered: ED Orders 04/17/22 15:03 XR chest 2V Stat EKG-12 Lead Stat Measure peak expiratory flow ONCE RT Consult Eval and Treat Now 04/17/22 15:30 Complete Blood Count AUTO DIFF Stat Comprehensive Metabolic Panel Stat Lactate (Lactic Acid) Stat 04/17/22 16:03 Respiratory Panel (Film Array) Stat Discontinued Medications Albuterol/Ipratropium (Albuterol/Ipratropium 3 Ml Ampul) 3 ml INH NOW ONE Stop: 04/17/22 15:23 Last Admin: 04/17/22 15:34 Dose: 3 ml Documented by: PATO Vital Signs Vital signs: Vital Signs - 8 hr 04/17/22 14:55 04/17/22 15:23 04/17/22 16:21 Temperature 99.4 F Pulse Rate 81 82 Respiratory Rate 18 20 Blood Pressure 153/70 H Pulse Oximetry 89 L 96 94 04/17/22 17:11 Temperature Pulse Rate 81 Respiratory Rate 22 Blood Pressure Pulse Oximetry 93 <David Miguel DO - Last Filed: 04/17/22 17:57> Orders Ordered: ED Orders 04/17/22 15:03 XR chest 2V Stat EKG-12 Lead Stat Measure peak expiratory flow ONCE RT Consult Eval and Treat Now 04/17/22 15:30 Complete Blood Count AUTO DIFF Stat Comprehensive Metabolic Panel Stat Lactate (Lactic Acid) Stat 04/17/22 16:03 Respiratory Panel (Film Array) Stat Discontinued Medications Albuterol/Ipratropium (Albuterol/Ipratropium 3 Ml Ampul) 3 ml INH NOW ONE Stop: 04/17/22 15:23 Last Admin: 04/17/22 15:34 Dose: 3 ml Documented by: PATO Vital Signs Vital signs: Vital Signs - 8 hr 04/17/22 14:55 04/17/22 15:23 04/17/22 16:21 Temperature 99.4 F Pulse Rate 81 82 Respiratory Rate 18 20 Blood Pressure 153/70 H Pulse Oximetry 89 L 96 94 04/17/22 17:11 Temperature Pulse Rate 81 Respiratory Rate 22 Blood Pressure Pulse Oximetry 93 MDM - SOB/Dyspnea <IVÁN Maurer - Last Filed: 04/17/22 17:09> Lab Data Result diagrams: 04/17/22 15:30 04/17/22 15:30 Labs: Lab Results 04/17/22 04/17/22 04/17/22 Range/Units 15:30 15:30 15:30 WBC 8.4 (4.5-11.0) X10^3/uL RBC 4.27 L (4.5-5.9) X10^6/uL Hgb 14.0 (13.5-17.5) g/dL Hct 39.9 L (41-53) % MCV 93.4 (80-100) fL MCH 32.8 (26-34) PG MCHC 35.1 (30-36) % RDW 13.8 (11.6-14.8) % Plt Count 294 (150-400) X10^3/uL Neut % (Auto) 76.1 H (50-75) % Lymph % (Auto) 9.5 L (25-40) % [place] % (Auto) 13.0 (3-14) % Eos % (Auto) 0.6 L (2-4) % Baso % (Auto) 0.8 (0-2) % Neut # (Auto) 6400 (8731-9992) /uL Lymph # (Auto) 800 L (6950-1957) /uL [place] # (Auto) 1100 H (0-900) /uL Eos # (Auto) 100 (0-450) /uL Baso # (Auto) 100 (0-100) /uL Sodium 136 L (137-145) mmol/L Potassium 4.5 (3.4-5.1) mmol/L Chloride 101 (98-107) mmol/L Carbon Dioxide 27 (22-32) mmol/L BUN 10 (9-20) mg/dL Creatinine 0.68 (0.66-1.25) mg/dL Estimated GFR > 60 (>60) mL/min BUN/Creatinine Ratio 14.7 (6-22) Glucose 108 (80-110) mg/dL Lactate 1.1 (0.7-2.1) mmol/L Calcium 9.0 (8.4-10.2) mg/dL Total Bilirubin 0.4 (0.2-1.3) mg/dL AST 35 (17-59) IU/L ALT 30 (<50) IU/L Alkaline Phosphatase 124 (38-126) U/L Total Protein 7.8 (6.3-8.2) g/dL Albumin 4.5 (3.5-5.0) g/dL Globulin 3.3 (1.7-4.1) g/dL Albumin/Globulin Ratio 1.4 (1.0-2.8) Chlamy pneumoniae PCR (Not Detect) Adenovirus (PCR) (Not Detect) B. pertussis DNA (PCR) (Not Detecte) B.parapertussis DNA PCR (Not Detecte) Coronavirus OC43 (PCR) (Not Detect) Coronavirus HKU1 (PCR) (Not Detect) Coronavirus 229E (PCR) (Not Detect) SARS-CoV-2 (PCR) (Not Detecte) Coronavirus NL63 (PCR) (Not Detect) Human Metapneumovir PCR (Not Detect) Influenza Type A (PCR) (Not Detect) Influenza Type B (PCR) (Not Detect) M. pneumoniae (PCR) (Not Detect) Parainfluenza 1 (PCR) (Not Detect) Parainfluenza 2 (PCR) (Not Detect) Parainfluenza 3 (PCR) (Not Detect) Parainfluenza 4 (PCR) (Not Detect) RSV (PCR) (Not Detect) Entero/Rhino (PCR) (Not Detect) 04/17/22 Range/Units 16:03 WBC (4.5-11.0) X10^3/uL RBC (4.5-5.9) X10^6/uL Hgb (13.5-17.5) g/dL Hct (41-53) % MCV (80-100) fL MCH (26-34) PG MCHC (30-36) % RDW (11.6-14.8) % Plt Count (150-400) X10^3/uL Neut % (Auto) (50-75) % Lymph % (Auto) (25-40) % [place] % (Auto) (3-14) % Eos % (Auto) (2-4) % Baso % (Auto) (0-2) % Neut # (Auto) (9353-0999) /uL Lymph # (Auto) (5946-4394) /uL [place] # (Auto) (0-900) /uL Eos # (Auto) (0-450) /uL Baso # (Auto) (0-100) /uL Sodium (137-145) mmol/L Potassium (3.4-5.1) mmol/L Chloride (98-107) mmol/L Carbon Dioxide (22-32) mmol/L BUN (9-20) mg/dL Creatinine (0.66-1.25) mg/dL Estimated GFR (>60) mL/min BUN/Creatinine Ratio (6-22) Glucose (80-110) mg/dL Lactate (0.7-2.1) mmol/L Calcium (8.4-10.2) mg/dL Total Bilirubin (0.2-1.3) mg/dL AST (17-59) IU/L ALT (<50) IU/L Alkaline Phosphatase (38-126) U/L Total Protein (6.3-8.2) g/dL Albumin (3.5-5.0) g/dL Globulin (1.7-4.1) g/dL Albumin/Globulin Ratio (1.0-2.8) Chlamy pneumoniae PCR Not detected (Not Detect) Adenovirus (PCR) Not detected (Not Detect) B. pertussis DNA (PCR) Not detected (Not Detecte) B.parapertussis DNA PCR Not detected (Not Detecte) Coronavirus OC43 (PCR) Not detected (Not Detect) Coronavirus HKU1 (PCR) Not detected (Not Detect) Coronavirus 229E (PCR) Not detected (Not Detect) SARS-CoV-2 (PCR) Not detected (Not Detecte) Coronavirus NL63 (PCR) Not detected (Not Detect) Human Metapneumovir PCR Detected H (Not Detect) Influenza Type A (PCR) Not detected (Not Detect) Influenza Type B (PCR) Not detected (Not Detect) M. pneumoniae (PCR) Not detected (Not Detect) Parainfluenza 1 (PCR) Not detected (Not Detect) Parainfluenza 2 (PCR) Not detected (Not Detect) Parainfluenza 3 (PCR) Not detected (Not Detect) Parainfluenza 4 (PCR) Not detected (Not Detect) RSV (PCR) Not detected (Not Detect) Entero/Rhino (PCR) Not detected (Not Detect) Imaging Data Chest x-ray: Radiologist's Impression: PROCEDURE:? XR CHEST 2V ? INDICATIONS:? shortness of breath ? TECHNIQUE:? 2 views of the chest were acquired.? ? COMPARISON:? [facility], CR, XR CHEST 2V, 04/22/2020, 14:35.? [facility], CR, XR CHEST 2V, 03/08/2022, 10:39. ? FINDINGS:? ? Surgical changes and devices:? None.? ? Lungs and pleura:? Lungs are clear.? No pleural effusions or pneumothorax.? ? Mediastinum:? Hiatal hernia less prominent on today's examination.? Mediastinal contours are normal.? Heart size is normal.? ? Bones and chest wall:? No suspicious bony abnormalities.? Soft tissues appear unremarkable.? ? IMPRESSION:? ? No evidence of an acute cardiopulmonary abnormality. ? Hiatal hernia. ? ? Dictated by: Isrrael Ponce D.O. on 04/17/2022 at 14:45 ? ? Approved by: Isrrael Ponce D.O. on 04/17/2022 at 14:46 ? ECG Data Interpretation: EKG independently reviewed by myself and Dr. Miguel reveals normal sinus rhythm at 81 bpm with regular axis and intervals. No STEMI, ST segment changes, arrhythmia, or acute ischemic changes. MDM Narrative Medical decision making narrative: This is a pleasant 76-year-old male with history of COPD without exacerbations who was recently started on Breztri in addition to his as needed albuterol inhaler for his COPD earlier this week. He came into the emergency department today for upper respiratory congestion, sore throat, concern for illness over the last two days with wheezing this morning, shortness of breath, and concern for COPD exacerbation. Patient 6-year-old daughter came home from school with an upper respiratory infection three days ago, patient states that he has had increased congestion, productive cough, a sore throat, and today started with wheezing. He used his albuterol inhaler as well as his breasts tree without any improvement at home. Came into the emergency department, was given a DuoNeb and he had marked improvement in aeration, air movement, and his wheezing was almost completely gone only with scattered expiratory intermittent wheezes. Chest x-ray does not show any evidence of acute cardiopulmonary abnormality, incidentally notable is a hiatal hernia. Breath sounds after DuoNeb are noted above, patient did not have any shortness of breath after DuoNeb and felt much more comfortable, his respiratory panel was positive for metapneumovirus, all other viruses tested were negative. Lab work is significant for a left shift without leukocytosis, no other findings on his lab work, patient is nontoxic appearing, did not prescribe any oral glucocorticoids as symptoms are likely triggered by viral illness and patient has a corticosteroid with a Laba in [place] in his Breztri inhaler. Patient understands to follow-up closely with his primary care provider if not improving, and to return to the emergency department for any worsening of his shortness of breath, wheezing, or other symptoms. Patient is appropriate and amenable to discharge home. Vital signs are stable on repeat examination is unremarkable. Patient has been informed of results. Patient has been given strict return to ER precautions for any new or worsening symptoms. Patient understands to follow up closely with outpatient providers as instructed. Patient understands plan and agrees to discharge home. All questions and concerns answered at this time. <David Miguel, DO - Last Filed: 04/17/22 17:57> Lab Data Labs: Lab Results 04/17/22 04/17/22 04/17/22 Range/Units 15:30 15:30 15:30 WBC 8.4 (4.5-11.0) X10^3/uL RBC 4.27 L (4.5-5.9) X10^6/uL Hgb 14.0 (13.5-17.5) g/dL Hct 39.9 L (41-53) % MCV 93.4 (80-100) fL MCH 32.8 (26-34) PG MCHC 35.1 (30-36) % RDW 13.8 (11.6-14.8) % Plt Count 294 (150-400) X10^3/uL Neut % (Auto) 76.1 H (50-75) % Lymph % (Auto) 9.5 L (25-40) % [place] % (Auto) 13.0 (3-14) % Eos % (Auto) 0.6 L (2-4) % Baso % (Auto) 0.8 (0-2) % Neut # (Auto) 6400 (2798-8666) /uL Lymph # (Auto) 800 L (7894-7332) /uL [place] # (Auto) 1100 H (0-900) /uL Eos # (Auto) 100 (0-450) /uL Baso # (Auto) 100 (0-100) /uL Sodium 136 L (137-145) mmol/L Potassium 4.5 (3.4-5.1) mmol/L Chloride 101 (98-107) mmol/L Carbon Dioxide 27 (22-32) mmol/L BUN 10 (9-20) mg/dL Creatinine 0.68 (0.66-1.25) mg/dL Estimated GFR > 60 (>60) mL/min BUN/Creatinine Ratio 14.7 (6-22) Glucose 108 (80-110) mg/dL Lactate 1.1 (0.7-2.1) mmol/L Calcium 9.0 (8.4-10.2) mg/dL Total Bilirubin 0.4 (0.2-1.3) mg/dL AST 35 (17-59) IU/L ALT 30 (<50) IU/L Alkaline Phosphatase 124 (38-126) U/L Total Protein 7.8 (6.3-8.2) g/dL Albumin 4.5 (3.5-5.0) g/dL Globulin 3.3 (1.7-4.1) g/dL Albumin/Globulin Ratio 1.4 (1.0-2.8) Chlamy pneumoniae PCR (Not Detect) Adenovirus (PCR) (Not Detect) B. pertussis DNA (PCR) (Not Detecte) B.parapertussis DNA PCR (Not Detecte) Coronavirus OC43 (PCR) (Not Detect) Coronavirus HKU1 (PCR) (Not Detect) Coronavirus 229E (PCR) (Not Detect) SARS-CoV-2 (PCR) (Not Detecte) Coronavirus NL63 (PCR) (Not Detect) Human Metapneumovir PCR (Not Detect) Influenza Type A (PCR) (Not Detect) Influenza Type B (PCR) (Not Detect) M. pneumoniae (PCR) (Not Detect) Parainfluenza 1 (PCR) (Not Detect) Parainfluenza 2 (PCR) (Not Detect) Parainfluenza 3 (PCR) (Not Detect) Parainfluenza 4 (PCR) (Not Detect) RSV (PCR) (Not Detect) Entero/Rhino (PCR) (Not Detect) 04/17/22 Range/Units 16:03 WBC (4.5-11.0) X10^3/uL RBC (4.5-5.9) X10^6/uL Hgb (13.5-17.5) g/dL Hct (41-53) % MCV (80-100) fL MCH (26-34) PG MCHC (30-36) % RDW (11.6-14.8) % Plt Count (150-400) X10^3/uL Neut % (Auto) (50-75) % Lymph % (Auto) (25-40) % [place] % (Auto) (3-14) % Eos % (Auto) (2-4) % Baso % (Auto) (0-2) % Neut # (Auto) (4473-0983) /uL Lymph # (Auto) (2085-3855) /uL [place] # (Auto) (0-900) /uL Eos # (Auto) (0-450) /uL Baso # (Auto) (0-100) /uL Sodium (137-145) mmol/L Potassium (3.4-5.1) mmol/L Chloride (98-107) mmol/L Carbon Dioxide (22-32) mmol/L BUN (9-20) mg/dL Creatinine (0.66-1.25) mg/dL Estimated GFR (>60) mL/min BUN/Creatinine Ratio (6-22) Glucose (80-110) mg/dL Lactate (0.7-2.1) mmol/L Calcium (8.4-10.2) mg/dL Total Bilirubin (0.2-1.3) mg/dL AST (17-59) IU/L ALT (<50) IU/L Alkaline Phosphatase (38-126) U/L Total Protein (6.3-8.2) g/dL Albumin (3.5-5.0) g/dL Globulin (1.7-4.1) g/dL Albumin/Globulin Ratio (1.0-2.8) Chlamy pneumoniae PCR Not detected (Not Detect) Adenovirus (PCR) Not detected (Not Detect) B. pertussis DNA (PCR) Not detected (Not Detecte) B.parapertussis DNA PCR Not detected (Not Detecte) Coronavirus OC43 (PCR) Not detected (Not Detect) Coronavirus HKU1 (PCR) Not detected (Not Detect) Coronavirus 229E (PCR) Not detected (Not Detect) SARS-CoV-2 (PCR) Not detected (Not Detecte) Coronavirus NL63 (PCR) Not detected (Not Detect) Human Metapneumovir PCR Detected H (Not Detect) Influenza Type A (PCR) Not detected (Not Detect) Influenza Type B (PCR) Not detected (Not Detect) M. pneumoniae (PCR) Not detected (Not Detect) Parainfluenza 1 (PCR) Not detected (Not Detect) Parainfluenza 2 (PCR) Not detected (Not Detect) Parainfluenza 3 (PCR) Not detected (Not Detect) Parainfluenza 4 (PCR) Not detected (Not Detect) RSV (PCR) Not detected (Not Detect) Entero/Rhino (PCR) Not detected (Not Detect) Discharge Plan Departure Patient Disposition: Home Clinical Impression: Infection due to human metapneumovirus (hMPV), Asthma exacerbation in COPD Instructions: Chronic Obstructive Pulmonary Disease, Common Cold Activity Restrictions/Additional Instructions: *You have been diagnosed with metapneumovirus which is a common cold viral infection likely from your daughter. This likely triggered your COPD and caused your wheezing exacerbation today. Please use your inhalers that you have as prescribed, use your albuterol as needed up to 4 times daily, and come to the emergency department if you are using it more often than this. Please try stay hydrated, use Flonase morning and night, you may use Zyrtec as needed for congestion, Mucinex for a thick productive cough with plenty of water to drink, and NyQuil or similar at night if you are having difficulty sleeping. Please follow-up with your primary doctor if you are not getting better as expected, please return for any worsening, because your inhaler has a steroid in it, that is adequate because this is likely triggered by the viral infection. If you are having any difficulty breathing, or wheezing which is persistent and not improved with your medications, please return for another evaluation thank you, have a great day. *What to do: *Please continue to take your regular medications as directed. [ ] New medication prescriptions sent to your pharmacy: [ ] [ ] New medication written as a paper prescription [ x] No new medications given *Please follow up with your primary care provider in 2-3 days, call for an appointment. Let them know you were seen in the Emergency Department and that we asked that you be seen for follow-up. We will electronically transmit a record of today's note if your PCP is in our system *If you do not have a primary care provider please contact [phone] to establish care with one of the [facility] primary care providers. *Return to Emergency Department if you should have any new, worsening or concerning symptoms, such as [fever greater than 101F, chills, worsening pain, persistent vomiting or other bothersome symptoms] Prescriptions: No Action carvedilol 25 mg tablet 25 mg PO BID 0RF atorvastatin 20 mg tablet 20 mg PO BEDTIME 0RF clopidogrel 75 mg tablet 75 mg PO DAILY 0RF aspirin 81 mg Tablet,Delayed Release (Dr/Ec) 81 mg PO DAILY 0RF losartan 25 mg tablet 12.5 mg PO DAILY 0RF nitroglycerin 0.4 mg tablet, sublingual 0.4 mg Sublingual PRN PRN (Reason: Chest Pain) 0RF gabapentin 300 mg capsule 300 mg PO TID 0RF omeprazole 20 mg Capsule,Delayed Release(Dr/Ec) 20 mg PO BID 0RF fluticasone propionate 50 mcg/actuation spray,suspension 1 spray Intranasal DAILY 0RF finasteride 5 mg tablet 5 mg PO DAILY 0RF oxycodone 5 mg tablet 5 - 10 mg PO Q4H PRN (Reason: PAIN) 0RF Label Comments: TAKE 1 TO 2 TABLETS BY MOUTH EVERY 4 HOURS NEEDED FOR PAIN. patient states has taken 3 doses today. 01/19/19 multivitamin Tablet 1 tab PO DAILY 0RF oxycodone 5 mg tablet 5 mg PO Q4H Qty: 14 0RF Referrals: Anders Camara MD [Primary Care Provider] - Visit Report Forms: Patient Portal/API <David Miguel DO - Last Filed: 04/17/22 17:57> Cosign ED [facility] Attestation: Dr Miguel Co-Sign Statement: I was available for consultation during this patient's emergency department visit. This chart is signed by myself for administrative purposes only. I did not have direct contact with this patient during this visit. They were seen independently by the APC.
[2022-04-17 17:11] VITALS: PULSE 81; RESP 22; O2SAT 93
== END 2022-04-17 17:11 | disposition home or self-care (01) ==
PROVIDERS: Emergency Medicine; Emergency Provider Nurse Practitioner Critical Care Medicine; Family Provider Internal Medicine; PCP Internal Medicine
DX: J44.1 Chronic obstructive pulmonary disease with (acute) exacerbation (principal); B97.81 Human metapneumovirus as the cause of diseases classified elsewhere; Z20.822 Contact with and (suspected) exposure to COVID-19
CPT/HCPCS: 36415; 71046; 80053; 83605; 85025; 87633; 93005; 93010; 94640; 99284

== ENCOUNTER → 2022-05-23 09:24 | Outpatient (CLI) | payer MEDICARE, OTHER, SELFPAY ==
--- NOTE | 2022-05-23 09:27 | DI.MRI.S_ITS ---
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 TECHNIQUE: Noncontrast coronal T1 spin echo and STIR, sagittal T1 spin echo with fat saturation and STIR, axial T1 spin echo and T2 fast spin echo with fat saturation. After the administration of contrast, axial/sagittal/coronal T1 spin echo with fat saturation through the left thigh. COMPARISON: [facility], MR, MR FEMUR LT WO/W CON, 05/14/2021, 14:35. FINDINGS: Image quality: Excellent. Bones: Again noted are postsurgical changes and erosive changes along medial aspect of anterior left acetabulum extending to involve left superior and inferior pubic rami unchanged from prior study. Questionable enhancement at the surgical bed are seen. No marrow signal abnormality is noted in left femur. No suspicious intraosseous lesion. Soft tissues: Heterogeneously enhancing soft tissue along left pelvic sidewall and anterior left acetabulum is again seen not significantly changed in size and appearance compared to prior studies. There is atrophy of left hip adductor compartment musculatures unchanged from prior study. No lymphadenopathy is seen. No new area of abnormal contrast enhancement. IMPRESSION: Stable postsurgical changes in anterior medial left upper thigh and left pelvis with stable appearing enhancing soft tissue along left pelvic sidewall/anterior acetabulum and adjacent bony erosive changes. Finding may represent postsurgical granulation tissue versus small amount of residual disease. Continued MR follow-up is recommended. Dictated by: Fredrick Ochoa M.D. on 05/24/2022 at 11:18 Approved by: Fredrick Ochoa M.D. on 05/24/2022 at 11:26
--- NOTE | 2022-05-23 09:28 | DI.MRI.S_ITS ---
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 After the administration of contrast, axial/sagittal/coronal T1 spin echo with fat saturation through the pelvis. COMPARISON: [facility], MR, MR PELVIS WO/W CON, 04/22/2020, 13:25. [facility], MR, MR PELVIS WO/W CON, 05/14/2021, 14:13. FINDINGS: Image quality: Excellent. Bones: Patient is status post previous resection of medial left upper thigh/inguinal/anterior pelvic soft tissue mass with stable appearing erosive changes/destruction involving anterior medial left acetabulum extending to involve left superior and inferior pubic rami. Subtle edema involving right inferior pubic ramus near symphysis pubis is again seen unchanged from prior study. No definite abnormal intraosseous enhancement. Overall appearance of bony pelvis is unchanged from prior study . No acute fracture or dislocation. No evidence of avascular necrosis of femoral head. Soft tissues: As seen on prior studies. T2 hyperintense signal involving left ileus psoas muscle, pectineus muscle, adductor muscles and obturator externus muscle is again seen with significant left pelvic floor muscle atrophy unchanged from prior studies. Previously described area of soft tissue enhancement along left pelvic sidewall at surgical bed remains unchanged in size and appearance from prior studies dating back to 2019. No new area of abnormal soft tissue enhancement is seen. No pelvic free fluid is noted. Bowel wall thickness is normal. Bladder wall thickness is normal. No gross pelvic lymphadenopathy is seen. IMPRESSION: 1. Extensive postsurgical changes in left hemipelvis and proximal left thigh not significantly changed in appearance compared to prior studies. 2. Enhancing area of soft tissue density along left pelvic sidewall with associated enhancing erosive changes in the adjacent left superior pubic ramus and medial left acetabulum remain stable in size and appearance from prior studies. Finding may represent stable postsurgical changes and fibrotic scarring. Residual disease cannot be entirely excluded. No new area of abnormal enhancement is seen. Dictated by: Fredrick Ochoa M.D. on 05/24/2022 at 9:41 Approved by: Fredrick Ochoa M.D. on 05/24/2022 at 11:18
== END ==
PROVIDERS: Family Provider Internal Medicine; PCP Internal Medicine; Referring Provider Physician Assistant Medical; Visit Provider Physician Assistant Medical
DX: D21.22 Benign neoplasm of connective and other soft tissue of left lower limb, including hip (principal); M12.20 Villonodular synovitis (pigmented), unspecified site
CPT/HCPCS: 72197; 73720; A9579

== ENCOUNTER → 2022-05-27 08:49 | Outpatient (CLI) | payer MEDICARE, OTHER, SELFPAY ==
--- NOTE | 2022-05-27 | DI.RAD.S_ITS ---
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 COMPARISON: [facility], , XR HIP W PEL IF DONE RT 2V, 01/19/2019, 14:27. FINDINGS: Bones: Both hips have mild degenerative changes. No fractures or dislocations. Pelvic ring appears intact. No suspicious bony lesions. The since previous has degenerative changes. Soft tissues: The visualized bowel gas pattern is normal. No suspicious soft tissue calcifications. Atherosclerotic calcifications of the femoral arteries. IMPRESSION: Mild degenerative changes of both hips and the symphysis pubis. No acute abnormality. Dictated by: Eh Hastings M.D. on 05/27/2022 at 14:13 Approved by: Eh Hastings M.D. on 05/27/2022 at 14:14
== END ==
PROVIDERS: Family Provider Internal Medicine; PCP Internal Medicine; Referring Provider Physician Assistant Medical; Visit Provider Physician Assistant Medical
DX: D21.22 Benign neoplasm of connective and other soft tissue of left lower limb, including hip (principal); M12.20 Villonodular synovitis (pigmented), unspecified site
CPT/HCPCS: 73502

== ENCOUNTER 2023-01-05 11:37 | Emergency (ER) | payer MEDICARE, OTHER, SELFPAY ==
[2023-01-05 11:42] VITALS: BP 151/86; PULSE 74; RESP 20; TEMP 37.1; O2SAT 96; BMI 28.8
--- NOTE | 2023-01-05 11:54 | DI.US.S_ITS ---
PROCEDURE: US PERIPH VENOUS LOW EXTREM LT INDICATIONS: PAIN, EDEMA TECHNIQUE: Real-time imaging, as well as color and pulse Doppler interrogation, were performed of the lower extremity deep veins from the inguinal ligament to the popliteal fossa. COMPARISON: None. FINDINGS: The common femoral, femoral and popliteal veins are normally compressible, and free of intraluminal thrombus. Color and pulse Doppler demonstrate normal phasic intraluminal flow. There is normal augmentation response to distal compression maneuver. IMPRESSION: No evidence of DVT in visualized left lower extremity veins. Dictated by: Fredrick Ochoa M.D. on 01/05/2023 at 12:14 Approved by: Fredrick Ochoa M.D. on 01/05/2023 at 12:15
--- NOTE | 2023-01-05 13:52 | DI.RAD.S_ITS ---
PROCEDURE: XR TIBIA FIBULA LT 2V INDICATIONS: left LE leg pain cellulitis vs osteomyelitis SQ air? TECHNIQUE: 2 views of the tibia and fibula were acquired. COMPARISON: None. FINDINGS: Bones: No fractures or dislocations. No suspicious bony lesions. Soft tissues: No suspicious soft tissue calcifications or masses. IMPRESSION: No subcutaneous emphysema. No acute lower leg fracture or dislocation. No radiopaque foreign body is seen. No radiographic evidence of osteomyelitis. Dictated by: Fredrick Ochoa M.D. on 01/05/2023 at 15:08 Approved by: Fredrick Ochoa M.D. on 01/05/2023 at 15:09
--- NOTE | 2023-01-05 13:52 | DI.RAD.S_ITS ---
PROCEDURE: XR KNEE LT 3V INDICATIONS: lateral knee cellulitis vs osteomyelitis TECHNIQUE: 3 views of the knee were acquired. COMPARISON: [facility], CR, XR KNEE RT 1TO2V, 07/27/2019, 14:15. FINDINGS: Bones: No fractures or dislocations. Mild tricompartmental osteoarthritis is seen with joint space narrowing and subchondral sclerosis. No patellar subluxation. No suspicious bony lesions. Soft tissues: No joint effusion. No suspicious soft tissue calcifications. IMPRESSION: Mild tricompartmental osteoarthritis. No left knee fracture or dislocation. No significant joint effusion. Dictated by: Fredrick Ochoa M.D. on 01/05/2023 at 15:08 Approved by: Fredrick Ochoa M.D. on 01/05/2023 at 15:08
[2023-01-05] MEDS: DOXYCYCLINE HYCLATE 100 MG TABLET PO (14:02)
[2023-01-05] MEDS: HYDROCODONE/ACET 5/325 TABLET 1 TAB PO (14:02)
--- NOTE | 2023-01-05 14:02 | ED_ITS ---
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 Graves at [facility] who presents to the emergency department complaining of swollen to the left lower extremity on the lateral aspect of his knee and below there complaining swelling, pain for the last 3 days. He denies fever chills, diaphoresis, feeling poorly, states that he has swelling and tenderness over the LCL of his left knee and has ecchymosis and some swelling down over his tib-fib on the anterior aspect. He is on Plavix and states that he took ibuprofen yesterday and it helped for his pain. He denies having any pain medication at home, PCP is Dr. Camara. He denies nausea, vomiting, lightheadedness or dizziness. Related Data Home Medications Medication Instructions Recorded Confirmed aspirin 81 mg tablet,delayed 81 mg PO DAILY 01/19/19 01/19/19 release atorvastatin 20 mg tablet 20 mg PO BEDTIME 01/19/19 01/19/19 carvedilol 25 mg tablet 25 mg PO BID 01/19/19 01/19/19 clopidogrel 75 mg tablet 75 mg PO DAILY 01/19/19 01/19/19 finasteride 5 mg tablet 5 mg PO DAILY 01/19/19 01/19/19 fluticasone propionate 50 1 spray intranasal DAILY 01/19/19 01/19/19 mcg/actuation nasal spray,suspension gabapentin 300 mg capsule 300 mg PO TID 01/19/19 01/19/19 losartan 25 mg tablet 12.5 mg PO DAILY 01/19/19 01/19/19 multivitamin 1 tab PO DAILY 01/19/19 01/19/19 nitroglycerin 0.4 mg sublingual 0.4 mg sublingual PRN PRN Chest 01/19/19 01/19/19 tablet Pain omeprazole 20 mg capsule,delayed 20 mg PO BID 01/19/19 01/19/19 release oxycodone 5 mg tablet 5 - 10 mg PO Q4H PRN PAIN 01/19/19 01/19/19 Previous Rx's Medication Instructions Recorded oxycodone 5 mg tablet 5 mg PO Q4H acute right hip pain 01/19/19 #14 tabs doxycycline hyclate 20 mg tablet 20 mg PO BID 7 days #14 tabs 01/05/23 hydrocodone 5 mg-acetaminophen 325 1 tab PO BID PRN pain #14 tabs 01/05/23 mg tablet Allergies Allergy/AdvReac Type Severity Reaction Status Date / Time Penicillins [PENICILLINS] Allergy Intermediate RASH AND Unverified 02/22/18 11:47 FEVER, WAS A CHILD WHEN REACTION HAPPENED lisinopril Allergy Verified 01/19/19 14:00 Review of Systems <IVÁN Maurer - Last Filed: 01/05/23 15:13> Review of Systems ROS Unobtainable: All systems reviewed & are unremarkable except as noted in HPI and below Patient History <IVÁN Maurer - Last Filed: 01/05/23 15:13> Medical History Hypertension Social History Smoking Status: Current some day smoker Smoking Status: Current some day smoker tobacco type: cigarettes alcohol intake frequency: a few times a week Substance Use Type: does not use Exam <IVÁN Maurer - Last Filed: 01/05/23 15:13> Narrative Exam Narrative: Reviewed vitals signs and nursing notes. General: cooperative, comfortable, in no acute distress, well groomed HEENT: symmetrical facial expressions, moist mucous membranes Cardiovascular: regular rate and rhythm, without tachycardia, warm extremities Respiratory: normal effort, able to speak in complete sentences, without wheezing, stridor, or abnormal breath sounds. No retractions or tachypnea. GI: abdomen soft, nontender to palpation, nondistended, without masses, rebound tenderness or exquisite tenderness with exam. MSK: moves all extremities, neurovascularly intact, no weakness, normal tone, normal range of motion, edema to the left lower extremity as described below Skin: brisk capillary refill, without pallor, pitting edema over the lateral left knee with tenderness, erythematous, without open wound, no palpable suprapatellar effusion, no tenderness over MCL, negative Diana's, dependent edema surrounding the lateral ankle, no tenderness to posterior knee or circum ferential edema, patient has tenderness over the anterior tib-fib with mild erythema concerning for cellulitis as well. Neuro: normal speech and cognition, A&O x3, ambulatory, clear speech Psych: mental status is grossly normal, congruent mood, normal affect, pleasant and cooperative Initial Vital Signs Initial Vital Signs: Vital Signs Temperature 98.7 F 01/05/23 11:42 Pulse Rate 74 01/05/23 11:42 Respiratory Rate 20 01/05/23 11:42 Blood Pressure 151/86 H 01/05/23 11:42 Pulse Oximetry 96 01/05/23 11:42 Oxygen Delivery Method 01/05/23 11:42 <Markus Stevens DO - Last Filed: 01/06/23 06:07> Initial Vital Signs Initial Vital Signs: Vital Signs Temperature 98.7 F 01/05/23 11:42 Pulse Rate 74 01/05/23 11:42 Respiratory Rate 20 01/05/23 11:42 Blood Pressure 151/86 H 01/05/23 11:42 Pulse Oximetry 96 01/05/23 11:42 Oxygen Delivery Method 01/05/23 11:42 Scores <IVÁN Maurer - Last Filed: 01/05/23 15:13> Jana Criteria for DVT Active Cancer (Treatment within 6 months): No Bedridden recently >3 days or major surgery within 4 weeks: No Calf Swelling >3cm compared to other leg: No Collateral (nonvericose) superficial veins present: No Entire leg swollen: No Localized tenderness along the deep vein system: No Pitting edema, confined to symtomatic leg: Yes Paralysis, paresis, or recent plaster immobilization of ext: No Previously documented DVT: No Alternative dx to DVT as likely or more likely: Yes Murtaza' criteria for DVT: -1 <DO Kal Amor Last Filed: 01/06/23 06:07> Jana Criteria for DVT Murtaza' criteria for DVT: -1 Course <IVÁN Maurer - Last Filed: 01/05/23 15:13> Orders Ordered: Discontinued Medications Hydrocodone Bitart/Acetaminophen (Hydrocodone/Acet 5/325 Tablet) 1 tab PO NOW ONE Stop: 01/05/23 13:53 Last Admin: 01/05/23 14:02 Dose: 1 tab Documented By: NOEL Doxycycline Hyclate (Doxycycline Hyclate 100 Mg Tablet) 100 mg PO NOW ONE Stop: 01/05/23 13:53 Last Admin: 01/05/23 14:02 Dose: 100 mg Documented By: NOEL Vital Signs Vital signs: Vital Signs - 8 hr 01/05/23 11:42 01/05/23 14:59 Temperature 98.7 F Pulse Rate 74 72 Respiratory Rate 20 16 Blood Pressure 151/86 H 154/84 H Pulse Oximetry 96 97 Oxygen Delivery Method Room Air Room Air <Markus Stevens DO - Last Filed: 01/06/23 06:07> Orders Ordered: Discontinued Medications Hydrocodone Bitart/Acetaminophen (Hydrocodone/Acet 5/325 Tablet) 1 tab PO NOW ONE Stop: 01/05/23 13:53 Last Admin: 01/05/23 14:02 Dose: 1 tab Documented By: NOEL Doxycycline Hyclate (Doxycycline Hyclate 100 Mg Tablet) 100 mg PO NOW ONE Stop: 01/05/23 13:53 Last Admin: 01/05/23 14:02 Dose: 100 mg Documented By: NOEL Vital Signs Vital signs: Vital Signs - 8 hr 01/05/23 11:42 01/05/23 14:59 Temperature 98.7 F Pulse Rate 74 72 Respiratory Rate 20 16 Blood Pressure 151/86 H 154/84 H Pulse Oximetry 96 97 Oxygen Delivery Method Room Air Room Air MDM - Extremity (Nontraumatic) <Susan Alexis [facility] - Last Filed: 01/05/23 15:13> Imaging Data Extremity x-ray #1: Radiologist's Impression: PROCEDURE:? XR TIBIA FIBULA LT 2V ? INDICATIONS:? left LE leg pain cellulitis vs osteomyelitis SQ air? ? TECHNIQUE:? 2 views of the tibia and fibula were acquired.? ? COMPARISON:? None. ? FINDINGS:? ? Bones:? No fractures or dislocations.? No suspicious bony lesions.? ? Soft tissues:? No suspicious soft tissue calcifications or masses.? ? IMPRESSION:? No subcutaneous emphysema.? No acute lower leg fracture or dislocation.? No radiopaque foreign body is seen.? No radiographic evidence of osteomyelitis. ? ? Dictated by: Fredrick Ochoa M.D. on 01/05/2023 at 15:08 ? ? Approved by: Fredrick Ochoa M.D. on 01/05/2023 at 15:09 ? Extremity x-ray #2: Radiologist's Impression: PROCEDURE:? XR KNEE LT 3V ? INDICATIONS:? lateral knee cellulitis vs osteomyelitis ? TECHNIQUE:? 3 views of the knee were acquired.? ? COMPARISON:? [facility], CR, XR KNEE RT 1TO2V, 07/27/2019, 14:15. ? FINDINGS:? ? Bones:? No fractures or dislocations.? Mild tricompartmental osteoarthritis is seen with joint space narrowing and subchondral sclerosis.? No patellar subluxation.? No suspicious bony lesions.? ? Soft tissues:? No joint effusion.? No suspicious soft tissue calcifications.? ? ? IMPRESSION:? Mild tricompartmental osteoarthritis.? No left knee fracture or dislocation. ?No significant joint effusion. ? ? Dictated by: Fredrick Ochoa M.D. on 01/05/2023 at 15:08 ? ? Approved by: Fredrick Ochoa M.D. on 01/05/2023 at 15:08 ? US - DVT: Radiologist's Impression: PROCEDURE:? US PERIPH VENOUS LOW EXTREM LT ? INDICATIONS:? PAIN, EDEMA ? TECHNIQUE:? Real-time imaging, as well as color and pulse Doppler interrogation, were performed of the lower extremity deep veins from the inguinal ligament to the popliteal fossa.? ? COMPARISON:? None. ? FINDINGS:? The common femoral, femoral and popliteal veins are normally compressible, and free of intraluminal thrombus.? Color and pulse Doppler demonstrate normal phasic intraluminal flow.? There is normal augmentation response to distal compression maneuver. ? ? IMPRESSION:? No evidence of DVT in visualized left lower extremity veins.? ? Dictated by: Fredrick Ochoa M.D. on 01/05/2023 at 12:14 ? ? Approved by: Fredrick Ochoa M.D. on 01/05/2023 at 12:15 ? MDM Narrative Medical decision making narrative: Chief Complaint: Swollen leg with pain, redness x3 days Independent historian: Patient Differential diagnoses include but are not limited to: Cellulitis, DVT, osteomyelitis, tendinopathy/tendinitis, knee effusion, foreign body, medication reaction, lymphedema I have independently reviewed the patient's vital signs and nursing notes as well as prior records if available. Pertinent Imaging reviewed: Left Extremity xrays without SQ air evidence of osteomyelitis or bony abnormality Clinical decision rules or scores evaluated: Wells -1 Course of care: Left lower extremity has skin changes consistent with cellulitis without evidence bony involvement on x-ray. Patient has history of agent orange, tumor removal x3 to his left lower extremity. This could be lymphedema, tendinitis, cellulitis, foreign body or osteomyelitis however he kirkpatrick s not have systemic symptoms of illness and states that his symptoms started 3 days ago. He does not have diabetes, will treat with doxycycline x2 weeks, patient was given hydrocodone as needed for pain since he reported using ibuprofen and he takes Plavix currently. Low suspicion for DVT as his DVT/vascular ultrasound of his left lower extremity is negative for DVT. Encouraged him to elevate frequently, use compression stockings as needed, follow-up with his primary doctor if this has recurrence, return emergency department for fever and chills, rapid progression or difficulty walking. Encouraged him use a stool softener while taking pain pills as needed. Social considerations that may affect disposition: none Questions are addressed and there is agreement with the plan and for follow-up. Patient is appropriate for outpatient management. MIPS: This encounter doesn't have any diagnosis' associated with MIPS criteria. Discharge Plan Departure Patient Disposition: Home Clinical Impression: Cellulitis Qualifiers: Site of cellulitis: extremity Site of cellulitis of extremity: lower extremity Laterality: left Qualified Code(s): L03.116 - Cellulitis of left lower limb Instructions: DI for Cellulitis -- Adult Activity Restrictions/Additional Instructions: *You have been diagnosed with cellulitis which is a skin infection, no evidence of bony infection today. Please take this antibiotic for the next 7 days and schedule follow up with your primary care provider. If this recurs, please be seen and let them know you Miguel doxycycline. There is no evidence of blood clot, this is most likely a skin infection. If you develop weakness or changes to your ability to walk, please come back for an urgent evaluation. Please take the pain pills with a stool softener as needed so that you do not become constipated. Stay hydrated, elevate your leg possible, okay to use compression bandage or Titi wrap. *What to do: *Please continue to take your regular medications as directed. [x ] New medication prescriptions sent to your pharmacy: [[facility] ] [ ] New medication written as a paper prescription [ ] No new medications given *Please follow up with your primary care provider in 2-3 days, call for an appointment. Let them know you were seen in the Emergency Department and that we asked that you be seen for follow-up. We will electronically transmit a record of today's note if your PCP is in our system *If you do not have a primary care provider please contact [phone] to establish care with one of the [facility] primary care providers. *Return to Emergency Department if you should have any new, worsening, or concerning symptoms, such as [fever greater than 101F, chills, worsening pain, persistent vomiting or other bothersome symptoms]. Prescriptions: New doxycycline hyclate 20 mg tablet 20 mg PO BID 7 Days Qty: 14 0RF hydrocodone-acetaminophen 5-325 mg tablet 1 tab PO BID PRN (Reason: pain) Qty: 14 0RF No Action carvedilol 25 mg tablet 25 mg PO BID atorvastatin 20 mg tablet 20 mg PO BEDTIME clopidogrel 75 mg tablet 75 mg PO DAILY aspirin 81 mg Tablet,Delayed Release (Dr/Ec) 81 mg PO DAILY losartan 25 mg tablet 12.5 mg PO DAILY nitroglycerin 0.4 mg tablet, sublingual 0.4 mg Sublingual PRN PRN (Reason: Chest Pain) gabapentin 300 mg capsule 300 mg PO TID omeprazole 20 mg Capsule,Delayed Release(Dr/Ec) 20 mg PO BID fluticasone propionate 50 mcg/actuation spray,suspension 1 spray Intranasal DAILY finasteride 5 mg tablet 5 mg PO DAILY oxycodone 5 mg tablet 5 - 10 mg PO Q4H PRN (Reason: PAIN) Label Comments: TAKE 1 TO 2 TABLETS BY MOUTH EVERY 4 HOURS NEEDED FOR PAIN. patient states has taken 3 doses today. 01/19/19 multivitamin Tablet 1 tab PO DAILY oxycodone 5 mg tablet 5 mg PO Q4H Qty: 14 0RF Referrals: Anders Camara MD [Primary Care Provider] - Stand Alone Forms: Patient Portal/API <Markus Stevens DO - Last Filed: 01/06/23 06:07> [facility] ED Attending Frandy Attestation: I was immediately available in the department for consultation. Documentation has been reviewed. I agree with assessment and plan.
[2023-01-05 14:59] VITALS: BP 154/84; PULSE 72; RESP 16; O2SAT 97
== END 2023-01-05 15:07 | disposition home or self-care (01) ==
PROVIDERS: Emergency Provider Nurse Practitioner Critical Care Medicine; Family Provider Internal Medicine; PCP Internal Medicine
DX: L03.116 Cellulitis of left lower limb (principal)
CPT/HCPCS: 73562; 73590; 93971; 99283